=== PATIENT | male | born 1960 ===

== ENCOUNTER 2017-06-16 09:37 | Emergency (ER) | payer OTHER ==
[~2017-06-16] VITALS: Ht 182.9 cm; Wt 99.8 kg
[2017-06-22] MEDS ORDERED: FLEET ENEMA EX230 ML RECTAL (02:53)
[2017-06-22] MEDS ORDERED: KRISTALOSE20 GM PO (02:53)
== END 2017-06-16 12:37 | disposition home or self-care (01) ==
LOC: ER 09:37
DX: B34.9 Viral infection, unspecified (principal); J09.X2 Influenza due to identified novel influenza A virus with other respiratory manifestations

== ENCOUNTER → 2017-06-21 | Emergency (ER) | payer OTHER ==
[~2017-06-21] VITALS: Ht 182.9 cm; Wt 102.1 kg
[~2017-06-21] MED LIST: FLEET ENEMA EX230 ML RECTAL; KRISTALOSE20 GM PO
== END | disposition home or self-care (01) ==
LOC: ER 17:32
DX: K59.09 Other constipation (principal)

== ENCOUNTER 2017-06-22 07:01 | Inpatient (IN) | payer OTHER ==
[~2017-06-22] VITALS: Ht 182.9 cm; Wt 102.1 kg
== END 2017-07-01 07:48 | disposition designated cancer center or children's hospital (05) | DRG 395 ==
LOC: ER 07:01 → SURH 18:04
PROC: BW21YZZ Computerized Tomography (CT Scan) of Abdomen and Pelvis using Other Contrast (ICD-10-PCS; principal; 2017-06-22)
PROC: 3E0336Z Introduction of Nutritional Substance into Peripheral Vein, Percutaneous Approach (ICD-10-PCS; 2017-06-23)
DX: K40.30 Unilateral inguinal hernia, with obstruction, without gangrene, not specified as recurrent (principal); K52.89 Other specified noninfective gastroenteritis and colitis; K59.09 Other constipation; Z53.09 Procedure and treatment not carried out because of other contraindication